=== PATIENT | male | born 1970 | race Caucasian/White ===

== ENCOUNTER 2016-06-28 18:25 | Emergency (ER) | payer OTHER ==
[2016-06-28 18:36] VITALS: BP 166/92; PULSE 100; TEMP 98; BMI 27.2
[2016-06-28] MEDS ORDERED: traMADol HCL 50 MG TABLET PO ONE (19:26)
[2016-06-28] MEDS ORDERED: traMADol HCL 50 MG TABLET ONE (19:27)
--- NOTE | 2016-06-28 19:35 | PDOC ---
History of Present Illness - General Chief Complaint: Pain Stated Complaint: LEG PAIN Time Seen by Provider: 06/28/16 18:54 History Source: Patient - History of Present Illness Occurred: reports: last week Severity: Yes: moderate Lower Extremity Pain Location: right: leg Past History - Past Medical History Allergies/Adverse Reactions: Allergies Allergy/AdvReac Type Severity Reaction Status Date / Time No Known Allergies Allergy Verified 06/28/16 18:36 Home Medications: Ambulatory Orders Hydrocodone/Ibuprofen [Hydrocodone-Ibuprofen 7.5-200] 1 each PO Q6H #15 tablet MDD 4mg 06/28/16 - Psycho/Social/Smoking Cessation Hx Anxiety: No Suicidal Ideation: No Smoking History: Never smoked Have you smoked in the past 12 months: No Information on smoking cessation initiated: No Hx Alcohol Use: No Drug/Substance Use Hx: No Substance Use Type: None Review of Systems - Review of Systems Constitutional: No: Chills, Fever Respiratory: No: Shortness of Breath Cardiac (ROS): No: Chest Pain, Palpitations Musculoskeletal: No: Back Pain, Neck Pain Neurological: Yes: Numbness. No: Tingling, Weakness *Physical Exam - Vital Signs Last Vital Signs Temp Pulse Resp BP Pulse Ox 98 F 100 H 18 166/92 98 06/28/16 18:34 06/28/16 18:34 06/28/16 18:34 06/28/16 18:34 06/28/16 18:34 - Physical Exam General Appearance: Yes: Appropriately Dressed. No: Apparent Distress HEENT: positive: Normal Voice Neck: positive: Supple Respiratory/Chest: negative: Respiratory Distress Extremity: positive: Normal Inspection, Normal Range of Motion, Other (pedal pulses intact). negative: Tender, Pedal Edema, Swelling, Calf Tenderness Integumentary: positive: Dry, Warm Neurologic: positive: Fully Oriented, Alert, Normal Mood/Affect, Motor Strength 5/5 Medical Decision Making - Medical Decision Making 06/28/16 19:35 45 yo M, no sig hx, p/w pain to R foot that radiates to posterior leg and thigh x > 1 week, sharp, intermittent, improves w/ alleve w/ no exacerbating factors. Also reports intermittent numbness to R foot, no LE weakness, b/b incontinence, saddle anesthesia or back pain. Denies h/o similar sxs. No recent trauma. No obvious RFs for DVT/PE. No chest pain/sob or palpitations. See exam LLE pain Possibly sciatica given hx, no RFs for DVT/PE, ? muscular, no s/o infxn, pulses intact -d/c w/ pain control and pmd f/u 06/28/16 19:39 *DC/Admit/Observation/Transfer Diagnosis at time of Disposition: Leg pain Qualifiers: Laterality: right Qualified Code(s): M79.604 - Pain in right leg - Discharge Dispostion Disposition: HOME Condition at time of disposition: Good - Prescriptions Prescriptions: Hydrocodone/Ibuprofen [Hydrocodone-Ibuprofen 7.5-200] 1 each PO Q6H #15 tablet MDD 4mg - Patient Instructions Printed Discharge Instructions: Sciatica Additional Instructions: Take medication as directed and follow up with your PMD of pain persists
== END 2016-06-28 19:58 | disposition home or self-care (01) ==
LOC: JERFT 18:25
DX: M79.604 Pain in right leg (principal)
CPT/HCPCS: 99281-25

== ENCOUNTER 2018-05-12 00:39 | Emergency (ER) | payer BC, OTHER ==
[2018-05-12 00:48] VITALS: BMI 26.4
[2018-05-12 01:04] VITALS: BP 121/69; PULSE 84; TEMP 98.5
--- NOTE | 2018-05-12 01:29 | PDOC ---
History of Present Illness - General Chief Complaint: Chest Pain Stated Complaint: CHEST PAIN Time Seen by Provider: 05/12/18 00:48 History Source: Patient, Spouse ( present at bedside.) Exam Limitations: No Limitations - History of Present Illness Initial Comments: HPI: 47 y/o male presenting to [facility] ER complaining of left sided anterior chest wall pain with radiation to left upper arm. No active symptoms at the time of interview. Reports two episodes over the course of the day. The first episode occurred while at rest during the morning. Lasted approx. 15 to 20 minutes before resolving spontaneously. Associated slight lightheadedness when standing during the episode. The second episode occurred tonight while laying down in bed. Again lasted approx. 15 to 20 minutes before resolving. Pt trialed PO Advil. Denies SOB, pain to right arm, neck, back, or abdomen. Denies trauma to the area or unusually strenuous activity. Never been evaluated by entry level automotive technician. Has never undergone cardiac stress testing or echo. PCP: Steve Family Hx: - No known family history of heart disease. 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 Denies prescription medications. Surgical Hx: - Pt denies past surgical history. Past History - Past Medical History Allergies/Adverse Reactions: Allergies Allergy/AdvReac Type Severity Reaction Status Date / Time No Known Allergies Allergy Verified 06/28/16 18:36 Home Medications: Ambulatory Orders NK [No Known Home Medication] 05/12/18 COPD: No - Suicide/Smoking/Psychosocial Hx Smoking History: Unknown if ever smoked Have you smoked in the past 12 months: No Hx Alcohol Use: No Drug/Substance Use Hx: No Substance Use Type: None Review of Systems - Review of Systems Able to Perform ROS?: Yes Comments:: In addition to that documented in the HPI above, the additional ROS was obtained : Constitutional: Denies fevers or chills Head: Denies vision changes ENMT: Denies sore throat CV: Per HPI Resp: Denies SOB GI: Denies vomiting or diarrhea : Denies painful urination MSK: Denies recent trauma Skin: Denies new rashes Neuro: Denies new numbness or tingling or weakness Endocrine: Denies polyuria Heme: Denies bleeding or bruising *Physical Exam - Vital Signs Last Vital Signs Temp Pulse Resp BP Pulse Ox 98.5 F 84 20 121/69 98 05/12/18 01:02 05/12/18 01:02 05/12/18 01:02 05/12/18 01:02 05/12/18 01:02 - Physical Exam Comments: Constitutional: Well-developed, well-nourished adult male in no acute distress or obvious discomfort. Found semi-fowlers on hospital bed. Alert and oriented x4. Answered all questions appropriately and completely. Speech was non-labored , non-pressured. Head: Normocephalic. No obvious external signs of trauma. Eyes: Sclerae white. Ears: Hearing grossly intact. Nose: No nasal discharge. Neck: Supple, trachea is midline. Cardiovascular / Chest: Regular rate and regular rhythm. No murmur, rubs, clicks, or gallops. Peripheral pulses: radial pulses full. Point tenderness to upper outer edge of left anterior chest wall. Pain reproduced with left arm lift off test. Negative empty beer can test. No pretibial edema. Respiratory: Breathing unlabored. Equal chest rise and fall. Clear to auscultation bilaterally. No stridor, no wheezing, no rhonchi. Gastrointestinal: abdomen is soft, non-tender, non-distended. Neuro: Alert and oriented. Moving all four extremities spontaneously. Skin: Warm, dry, and intact. Psych: Affect: appropriate. Mood: normal. ED Treatment Course - LABORATORY CBC & Chemistry Diagram: 05/12/18 01:35 05/12/18 01:35 Medical Decision Making - Medical Decision Making HEART Score for Major Cardiac Events RESULT SUMMARY: 1 points Low Score (0-3 points) Risk of MACE of 0.9-1.7%. INPUTS: History > 0 = Slightly suspicious EKG > 0 = Normal Age > 1 = 45-64 Risk factors > 0 = No known risk factors Initial troponin > 0 = ?normal limit *Reviewed vital signs, nursing notes, and prior visit documentation (if available). 47 y/o male presenting with resolved left sided chest pain radiating to left arm. Made worse with movement of left arm. No associated SOB. No significant personal or familial cardiac history. Vitals unremarkable for hypotension or tachycardia. Low suspicion for ACS, pneumonia, arrhythmia. Suspect likely MSK pain given reproducible nature of pain. Will obtain EKG, CXR, CBC, CMP, and troponin. Ordered ASA. Pts initial and three hour repeat EKG were both unremarkable for ischemic changes. Initial and three hour troponin not elevated. CXR unremarkable for acute cardiopulmonary process per ED wet read. Radiology report pending. CBC unremarkable for leukocytosis or anemia. CMP unremarkable for significant electrolyte derangement. Pt reassessed and reports no further discomfort. Continue to suspect MSK pain. Discussed imaging and laboratory results with pt. Answered all questions. Provided return precautions. Pt expressed verbal understanding and agreement with plan to discharge home with outpatient follow up. Provided cardiology referral for f/u. *DC/Admit/Observation/Transfer Diagnosis at time of Disposition: Chest pain in adult - Discharge Dispostion Disposition: HOME Condition at time of disposition: Good Decision to Admit order: No - Referrals Referrals: Chano Wilson MD [Primary Care Provider] - Andrew Noriega MD [Staff Physician] - - Patient Instructions Printed Discharge Instructions: DI for Chest Pain Additional Instructions: You were seen today for chest pain. Your EKG, chest xray, and blood work were normal. The pain is not likely to be related to your heart or your lungs. It may be caused by a muscle pain. You can take over the counter Tylenol or Advil as needed for pain. Take as directed on the package insert. Do not exceed the recommended dosage. Follow up with your primary care doctor within the next 3-4 days to make sure you are healing. You will need to call to make an appointment. The number is included in this packet. A copy of todays results are attached to this packet. Take it to the appointment so your doctor can review them. You can also follow up with a entry level automotive technician. I have placed a referral for you to see Dr. Noriega. You will need to call to make an appointment. The number is included in this packet. Go to the nearest emergency department if your condition worsens or you feel like you need additional emergency evaluation. Print Language: SRI LANKAN - Post Discharge Activity
[2018-05-12] MEDS ORDERED: ASPIRIN 81 MG CHEWABLE TABLETS PO ONE (01:30)
[2018-05-12] MEDS ORDERED: ASPIRIN 81 MG CHEWABLE TABLETS ONE (01:34)
[2018-05-12 01:41] LABS: BASO % 1.1 % (0-2.0); EOS % 6.5 % (0-4.5); HEMATOCRIT 43.6 % (35.4-49); HEMOGLOBIN 14.4 GM/dL (11.7-16.9); LYMPH % 29.1 % (8-40); MCHC 32.9 g/dl (32.0-35.9); MEAN CELL VOLUME 85.1 fl (80-96); MONO % 10.5 % (3.8-10.2); NEUT % 52.8 % (42.8-82.8); PLATELET COUNT 148 K/MM3 (134-434); RBC 5.13 M/mm3 (4.00-5.60); RDW 14.1 % (11.9-15.9); WHITE BLOOD COUNT 4.6 K/mm3 (4.0-10.0)
[2018-05-12 02:17] LABS: ALBUMIN 3.7 g/dl (3.4-5.0); ALK PHOS 54 U/L (45-117); ANION GAP 7 MMOL/L (8-16); BILIRUBIN,TOTAL 0.3 mg/dL (0.2-1); BLOOD UREA NITROGEN 27 mg/dL (7-18); CHLORIDE 106 mmol/L (98-107); CO2 26 mmol/L (21-32); CREATININE 1.2 mg/dL (0.55-1.3); GLUCOSE,RANDOM 139 mg/dL (74-106); POTASSIUM 3.9 mmol/L (3.5-5.1); SGOT/AST 17 U/L (15-37); SGPT/ALT 31 U/L (13-61); SODIUM 139 mmol/L (136-145); TOT PROT 6.7 g/dl (6.4-8.2)
--- NOTE | 2018-05-12 02:52 | PDOC ---
Attending Attestation - Resident Resident Name: Petey Pak - ED Attending Attestation I have performed the following: I have examined & evaluated the patient, The case was reviewed & discussed with the resident, I agree w/resident's findings & plan - HPI HPI: 05/12/18 02:50 Pt comes with left sided CP since this AM. Then the pain got worse this afternoon/evening and started to radiate to the left arm. Pt got anxious and came in for eval. - Physicial Exam PE: 05/12/18 02:51 Agree with resident exam - Medical Decision Making 05/12/18 02:51 CXR normal EKG NSR. Pt will be given a baby asa first set of labs normal Pt will have a 2nd card enz at 4:30 AM 05/12/18 04:46 2nd EKG is NSR; no change. Pt's 2nd card enz is pending. Once it is normal, he will be discharged home. 05/12/18 05:12 d/c home.
--- NOTE | 2018-05-14 10:25 | EKG ---
Test Reason : Blood Pressure : / mmHG Vent. Rate : 059 BPM Atrial Rate : 059 BPM P-R Int : 154 ms QRS Dur : 078 ms QT Int : 396 ms P-R-T Axes : 050 019 025 degrees QTc Int : 392 ms SINUS BRADYCARDIA OTHERWISE NORMAL ECG NO PREVIOUS ECGS AVAILABLE Confirmed by CHARLES RODRIGUEZ MD ([id number]) on 05/14/2018 10:25:42 AM Referred By: Confirmed By:CHARLES RODRIGUEZ MD
--- NOTE | 2018-05-14 10:25 | EKG ---
Test Reason : Blood Pressure : / mmHG Vent. Rate : 058 BPM Atrial Rate : 058 BPM P-R Int : 158 ms QRS Dur : 078 ms QT Int : 394 ms P-R-T Axes : 042 009 029 degrees QTc Int : 386 ms SINUS BRADYCARDIA OTHERWISE NORMAL ECG WHEN COMPARED WITH ECG OF 12-MAY-2018 00:45, NO SIGNIFICANT CHANGE WAS FOUND Confirmed by CHARLES RODRIGUEZ MD ([id number]) on 05/14/2018 10:24:45 AM Referred By: Confirmed By:CHARLES RODIRGUEZ MD
== END 2018-05-12 05:14 | disposition home or self-care (01) ==
LOC: JER 00:39
DX: R07.9 Chest pain, unspecified (principal)
CPT/HCPCS: 36415; 71046-TC-FY; 80053; 84484; 85025; 93005; 93010; 99283-25

== ENCOUNTER 2019-03-22 08:58 | Inpatient (IN) | payer BC ==
[2019-03-22 09:07] VITALS: BMI 26.7
[2019-03-22] MEDS ORDERED: KETOROLAC TROMETHAMINE 60 MG/2 ML VIAL IM ONE (09:23)
[2019-03-22] MEDS ORDERED: KETOROLAC TROMETHAMINE 60 MG/2 ML VIAL ONE (09:23)
[2019-03-22] MEDS ORDERED: traMADol HCL 50 MG TABLET PO ONE (09:23)
[2019-03-22] MEDS ORDERED: traMADol HCL 50 MG TABLET ONE (09:24)
--- NOTE | 2019-03-22 09:27 | PDOC ---
History of Present Illness - General Chief Complaint: Back Pain Stated Complaint: BACK PAIN Time Seen by Provider: 03/22/19 09:22 History Source: Patient - History of Present Illness Occurred: reports: this morning Pain Location: reports: back Past History - Past Medical History Allergies/Adverse Reactions: Allergies Allergy/AdvReac Type Severity Reaction Status Date / Time No Known Allergies Allergy Verified 03/22/19 09:03 Home Medications: Ambulatory Orders Cyclobenzaprine HCl [Flexeril 10 mg] 10 mg PO HS #9 tablet 03/22/19 Ibuprofen [Motrin -] 800 mg PO Q6H #30 tablet 03/22/19 COPD: No - Immunization History Immunization Up to Date: Yes - Psycho Social/Smoking Cessation Hx Smoking History: Never smoked Have you smoked in the past 12 months: No Hx Alcohol Use: No Drug/Substance Use Hx: No Substance Use Type: None Review of Systems - Review of Systems Constitutional: No: Chills, Fever ABD/GI: No: Nausea, Vomiting, Abdominal cramping : No: Dysuria, Frequency, Hematuria Musculoskeletal: Yes: Back Pain Neurological: No: Numbness, Tingling, Weakness *Physical Exam - Vital Signs Last Vital Signs Temp Pulse Resp BP Pulse Ox 97.9 F 74 16 157/90 99 03/22/19 09:03 03/22/19 09:03 03/22/19 09:03 03/22/19 09:03 03/22/19 09:03 - Physical Exam General Appearance: Yes: Appropriately Dressed, Moderate Distress HEENT: positive: Normal Voice Neck: positive: Supple Respiratory/Chest: negative: Respiratory Distress Gastrointestinal/Abdominal: positive: Soft. negative: Tender Musculoskeletal: positive: Vertebral Tenderness (to R lower back). negative: CVA Tenderness, CVA Tenderness (L) Integumentary: positive: Dry, Warm Neurologic: positive: Fully Oriented, Alert, Normal Mood/Affect. negative: Motor Strength 5/5 ED Treatment Course - LABORATORY CBC & Chemistry Diagram: 03/22/19 11:40 03/22/19 11:40 Medical Decision Making - Medical Decision Making 03/22/19 09:24 48 yo M, no sig hx, here w/ R lower back pain radiating to his R leg that started after sneezing this a.m. Took a dose of Kendra aspirin with no relief. No sensory changes or lower extremity weakness. Had similar pain a year ago that resolved with pain meds. No sxs, n/v/f/c see exam M/l MSK back pain No red flags at this time -pain control in ED and reassess 03/22/19 11:13 Patient's pain persist despite multiple attempts at pain control in ED. Feels better laying down but when he attempts to sit up, pain is severe and unable to bear weight. Neuro remains intact. Will move over to the main ED for further evaluation and admission at this time Discharge - Discharge Information Problems reviewed: Yes Clinical Impression/Diagnosis: Intractable low back pain - Additional Discharge Information Prescriptions: Cyclobenzaprine HCl [Flexeril 10 mg] 10 mg PO HS #9 tablet Ibuprofen [Motrin -] 800 mg PO Q6H #30 tablet - Follow up/Referral Referrals: Chano Wilson MD [Primary Care Provider] - - Patient Discharge Instructions Patient Printed Discharge Instructions: Low Back Pain Additional Instructions: Medications as prescribed If pain persists, return to the ER or follow-up with your primary care physician - Post Discharge Activity Work/Back to School Note: Back to Work
[2019-03-22] MEDS ORDERED: morphine CARPU-JECT 4 MG/1 ML DISP.SYRIN IVPUSH ONE (10:23)
[2019-03-22] MEDS ORDERED: morphine SULFATE 4 MG/ML VIAL ONE (10:26)
[2019-03-22] MEDS ORDERED: CYCLOBENZAPRINE HCL 10 MG TABLET (FP) PO ONE (11:42)
[2019-03-22] MEDS ORDERED: LIDOCAINE 5% TOPICAL PATCH TP ONE (11:43)
[2019-03-22 11:50] LABS: BASO % 0.6 % (0-2.0); EOS % 1.7 % (0-4.5); HEMATOCRIT 45.3 % (35.4-49); HEMOGLOBIN 15.1 GM/dL (11.7-16.9); MCH 28.3 pg (25.7-33.7); MCHC 33.4 g/dl (32.0-35.9); MEAN CELL VOLUME 84.6 fl (80-96); MEAN PLT VOLUME 9.5 fl (7.5-11.1); MONO % 4.9 % (3.8-10.2); NEUT % 77.8 % (42.8-82.8); PLATELET COUNT 181 K/MM3 (134-434); RBC 5.35 M/mm3 (4.00-5.60); RDW 13.4 % (11.9-15.9); WHITE BLOOD COUNT 8.3 K/mm3 (4.0-10.0)
[2019-03-22] MEDS ORDERED: CYCLOBENZAPRINE HCL 10 MG TABLET (FP) ONE (11:51)
[2019-03-22] MEDS ORDERED: LIDOCAINE 5% TOPICAL PATCH ONE (11:51)
--- NOTE | 2019-03-22 11:56 | PDOC ---
Documentation entered by Taty Rausch SCRIBE, acting as scribe for Gabriel Russell MD. Gabriel Russell MD: This documentation has been prepared by the Shalom piña Nirvannie, SCRIBE, under my direction and personally reviewed by me in its entirety. I confirm that the documentation accurately reflects all work, treatment, procedures, and medical decision making performed by me. Attending Attestation - Resident Resident Name: Flavio Jackson - ED Attending Attestation I have performed the following: I have examined & evaluated the patient, The case was reviewed & discussed with the resident, I agree w/resident's findings & plan, Exceptions are as noted - HPI HPI: 03/22/19 11:55 48y M hx of disk herniations (L5/S1 dx via MRI) - presents with acute onset of back pain after sneezing today. The patient states that he felt a little bit of mild pain yesterday however this morning he sneezed which caused a sudden onset of right-sided lower back pain rating down his right leg. The patient denies any fever, chills, urinary or bowel incontinence, Focal weakness, Numbness, Saddle anesthesia. 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 Social:, Social EtOH, denies IVDU - Physicial Exam PE: 03/22/19 11:53 GENERAL: The patient is awake, alert, and fully oriented, Nontoxic - in no acute distress. BACK: No focal midline tenderness in the cervical thoracic or lumbar spine, mild tenderness to palpation on the lateral aspect of right lower back, superior buttock. NEUROLOGICAL: No facial assymetry, Normal speech, Flexion/extension of the hip/ knee normal, gross sensation intact distally SKIN: No rashes on the back appreciated - Medical Decision Making 03/22/19 11:39 Assessment and plan, suspect the patient's symptoms Related to re-exacerbation of his herniated disc, no red flags. Patient was originally seen in fast track, gotten some medications without improvement, will give the patient a muscle relaxants. Will defer imaging at this time Will reassess 03/22/19 13:43 The patient has persistent pain, he Was given Lidoderm patches, Flexeril, Toradol, tramadol. We will give the patient Dilaudid now. May need to admit the patient for pain control.
--- NOTE | 2019-03-22 12:12 | PDOC ---
*Physical Exam - Vital Signs Last Vital Signs Temp Pulse Resp BP Pulse Ox 97.9 F 74 16 157/90 99 03/22/19 09:03 03/22/19 09:03 03/22/19 09:03 03/22/19 09:03 03/22/19 09:03 ED Treatment Course - LABORATORY CBC & Chemistry Diagram: 03/22/19 11:40 03/22/19 11:40 - Medications Given in the ED: ED Medications Discontinued Medications Generic Name Dose Route Start Last Admin Trade Name Buster PRN Reason Stop Dose Admin Ketorolac Tromethamine 60 mg 03/22/19 09:23 03/22/19 09:24 Toradol Injection - IM 03/22/19 09:24 60 mg ONCE ONE Administration Morphine Sulfate 4 mg 03/22/19 10:23 03/22/19 10:29 Morphine Injection - IVPUSH 03/22/19 10:24 4 mg ONCE ONE Administration Tramadol HCl 50 mg 03/22/19 09:23 03/22/19 09:24 Ultram - PO 03/22/19 09:24 50 mg ONCE ONE Administration Medical Decision Making - Medical Decision Making 03/22/19 11:45 Upgrade from fast track 48 yo male pmh L5-S1 herniated disc presents to the ED with right sided lower back pain with radiation into his right leg. Pt denies saddle anesthesia, incontinence/retention of stool or urine, weakness into his lower ext. Pain not controlled after toradol and morphine, will try lidoderm patch and flexeril will reassess and dispo 03/22/19 12:40 Denies improvement in pain, will give 10 mg decadron and reassess 03/22/19 14:58 No improvement in pain, pt given 1 mg Dilaudid and pending CT read. Pt to be admitted for intractable back pain 03/22/19 15:56 PNo improvement after Dilaudid, pain man consult placed and pt admitted. Discussed with ANNITA Marie Discharge - Discharge Information Problems reviewed: Yes Clinical Impression/Diagnosis: Intractable low back pain - Admission Yes - Additional Discharge Information Prescriptions: Cyclobenzaprine HCl [Flexeril 10 mg] 10 mg PO HS #9 tablet Ibuprofen [Motrin -] 800 mg PO Q6H #30 tablet - Follow up/Referral Referrals: Chano Wilson MD [Primary Care Provider] - - Patient Discharge Instructions Patient Printed Discharge Instructions: Low Back Pain Additional Instructions: Medications as prescribed If pain persists, return to the ER or follow-up with your primary care physician - Post Discharge Activity Work/Back to School Note: Back to Work
[2019-03-22 12:21] LABS: BILIRUBIN,TOTAL 0.8 mg/dL (0.2-1); BLOOD UREA NITROGEN 32.3 mg/dL (7-18); CALCIUM 9.4 mg/dL (8.5-10.1); POTASSIUM 4.4 mmol/L (3.5-5.1); TOT PROT 7.4 g/dl (6.4-8.2)
[2019-03-22] MEDS ORDERED: DEXAMETHASONE SOD PHOSPHATE 10 MG/1 ML VIAL IVPUSH ONE (12:38)
[2019-03-22] MEDS ORDERED: DEXAMETHASONE SOD PHOSPHATE 10 MG/1 ML VIAL ONE (12:41)
[2019-03-22] MEDS ORDERED: HYDROmorphone HCL CARPU-JECT 2 MG/1 ML DISP.SYRIN IVPUSH ONE (14:26)
[2019-03-22] MEDS ORDERED: HYDROmorphone HCl 2 MG/ML VIAL ONE (14:31)
[2019-03-22] MEDS ORDERED: ACETAMINOPHEN 325 MG TABLET (FP) PO PRN (18:32)
[2019-03-22] MEDS ORDERED: LIDOCAINE PATCH REMOVAL MC ONE (22:00)
[2019-03-23] MEDS ORDERED: HEPARIN NA (PORCINE) 5,000 UNITS/ML 1ML VIAL ONE (00:48)
[2019-03-23] MEDS: HEPARIN NA (PORCINE) 5,000 UNITS/ML 1ML VIAL SQ SCH ×3 (01:20→21:06)
[2019-03-23] MEDS ORDERED: GABAPENTIN 100 MG CAPSULE ONE (06:06)
[2019-03-23] MEDS: GABAPENTIN 300 MG CAPSULE PO SCH ×3 (06:11→21:06)
[2019-03-23 06:15] LABS: BASO % 0.3 % (0-2.0); EOS % 0.1 % (0-4.5); HEMATOCRIT 44.3 % (35.4-49); HEMOGLOBIN 14.9 GM/dL (11.7-16.9); LYMPH % 12.7 % (8-40); MCH 28.3 pg (25.7-33.7); MCHC 33.6 g/dl (32.0-35.9); MEAN CELL VOLUME 84.2 fl (80-96); MEAN PLT VOLUME 9.7 fl (7.5-11.1); MONO % 5.9 % (3.8-10.2); PLATELET COUNT 181 K/MM3 (134-434); RBC 5.26 M/mm3 (4.00-5.60); RDW 13.7 % (11.9-15.9); WHITE BLOOD COUNT 6.9 K/mm3 (4.0-10.0)
[2019-03-23 06:52] LABS: ALBUMIN 3.8 g/dl (3.4-5.0); BILIRUBIN,TOTAL 0.3 mg/dL (0.2-1); BLOOD UREA NITROGEN 32.2 mg/dL (7-18); CALCIUM 9.3 mg/dL (8.5-10.1); POTASSIUM 4.5 mmol/L (3.5-5.1)
[2019-03-23] MEDS ORDERED: ACETAMINOPHEN 325 MG TABLET (FP) ONE (10:35)
[2019-03-23] MEDS ORDERED: oxyCODONE HCL 5 MG TABLET ONE (10:36)
[2019-03-23] MEDS: oxyCODONE HCL 5 MG TABLET PO PRN ×2 (10:46→16:50)
[2019-03-23] MEDS: LIDOCAINE 5% TOPICAL PATCH TP SCH (10:46)
--- NOTE | 2019-03-23 13:19 | HP ---
Admitting History and Physical - Primary Care Physician PCP: Luisa Gutierrez - Admission Chief Complaint: Intractable low back pain with sciatica History of Present Illness: 48y M hx of disk herniations (L5/S1 dx via MRI) - presents with acute onset of back pain after sneezing today. The patient states that he felt a little bit of mild pain yesterday however this morning he sneezed which caused a sudden onset of right-sided lower back pain rating down his right leg. The patient denies any fever, chills, urinary or bowel incontinence, Focal weakness, Numbness, Saddle anesthesia. 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 as of now, pain is 4/10, however worsens upon ambulation, radiating down his right leg. History Source: Patient Limitations to Obtaining History: No Limitations - Smoking History Smoking history: Never smoked Have you smoked in the past 12 months: No - Alcohol/Substance Use Hx Alcohol Use: Yes (occassional) Home Medications - Allergies Allergies/Adverse Reactions: Allergies Allergy/AdvReac Type Severity Reaction Status Date / Time No Known Allergies Allergy Verified 03/22/19 09:03 - Home Medications Home Medications: Ambulatory Orders NK [No Known Home Medication] 03/22/19 Review of Systems - Review of Systems Constitutional: reports: No Symptoms Eyes: reports: No Symptoms HENT: reports: No Symptoms Neck: reports: No Symptoms Cardiovascular: reports: No Symptoms Respiratory: reports: No Symptoms Gastrointestinal: reports: No Symptoms Genitourinary: reports: No Symptoms Breasts: reports: No Symptoms Reported Musculoskeletal: reports: Back Pain Integumentary: reports: No Symptoms Neurological: reports: No Symptoms Endocrine: reports: No Symptoms Hematology/Lymphatic: reports: No Symptoms Psychiatric: reports: No Symptoms Physical Examination Vital Signs: Vital Signs Temperature 97.4 F L 03/23/19 11:51 Pulse Rate 62 03/23/19 11:19 Respiratory Rate 20 03/23/19 11:51 Blood Pressure 138/82 03/23/19 11:51 O2 Sat by Pulse Oximetry (%) 100 03/23/19 11:51 Constitutional: Yes: Well Nourished, No Distress, Calm Cardiovascular: Yes: Regular Rate and Rhythm Respiratory: Yes: Regular Gastrointestinal: Yes: Normal Bowel Sounds, Soft Renal/: Yes: WNL Musculoskeletal: Yes: Back Pain Extremities: Yes: WNL Edema: No Peripheral Pulses WNL: Yes Neurological: Yes: Alert, Oriented Psychiatric: Yes: Alert, Oriented Labs: CBC, BMP 03/23/19 05:40 03/23/19 05:40 Problem List - Problems (1) Intractable low back pain Assessment/Plan: -Lumbar CT:Transitional vertebral body at the lumbosacral junction considered at L5 for the purposes of this examination. L4-L5 mild degenerative disc disease , mainly posteriorly with mild to moderate right paracentral disc bulge/ herniation, posterior spur formation and impingement of right L4 nerve root is again seen. On prior MRI examination dated 07/09/2016 it was considered to represent S1 and the disc bulge was reported as at L5-S1 level. If surgical intervention is considered, x-rays of the thoracic and lumbar spine is needed for better counting of the thoracic and lumbar vertebral bodies. There is also extension mild left lateral disc bulge at L4-L5 level reaching and possibly slightly impinging left L4 nerve root. -Neurosurgery consult -Pain management -PO prednisone -PPI Problems reviewed: Yes Code(s): M54.5 - LOW BACK PAIN Assessment/Plan see problem list
[2019-03-23] MEDS: PANTOPRAZOLE 40 MG TABLET PO SCH (13:34)
--- NOTE | 2019-03-23 15:56 | CON.GI ---
Consult Consult Specialty:: GI Reason for Consultation:: rectal bleeding - History of Present Illness History of Present Illness: 48y M hx of disk herniations (L5/S1 dx via MRI) - presents with acute onset of back pain after sneezing today. The patient states that he felt a little bit of mild pain yesterday however this morning he sneezed which caused a sudden onset of right-sided lower back pain rating down his right leg. Patient has intermittent rectal bleeding for the past 3 months, no active bleeding at this time.He denies abdominal pain, weight loss and melena - Alcohol/Substance Use Hx Alcohol Use: Yes (occassional) - Smoking History Smoking history: Never smoked Have you smoked in the past 12 months: No Home Medications - Allergies Allergies/Adverse Reactions: Allergies Allergy/AdvReac Type Severity Reaction Status Date / Time No Known Allergies Allergy Verified 03/22/19 09:03 - Home Medications Home Medications: Ambulatory Orders NK [No Known Home Medication] 03/22/19 Physical Exam-GI Vital Signs: Vital Signs Temperature 97.4 F L 03/23/19 11:51 Pulse Rate 62 03/23/19 11:19 Respiratory Rate 03/23/19 11:51 Blood Pressure 138/82 03/23/19 11:51 O2 Sat by Pulse Oximetry (%) 100 03/23/19 11:51 Constitutional: Yes: Well Nourished Eyes: Yes: Conjunctiva Clear HENT: Yes: Atraumatic Neck: Yes: Supple Cardiovascular: Yes: Regular Rate and Rhythm Respiratory: Yes: CTA Bilaterally ...Palpate: Yes: Soft. No: Firm/Rigid, Guarding, Hepatomegaly, Mass, Pulsatile Mass, Splenomegaly, Tenderness Labs: CBC, BMP 03/23/19 05:40 03/23/19 05:40 Problem List - Problems (1) Rectal bleeding Assessment/Plan: R> could perform rectal examination as the patient is experiencing low back pain and is hesitant to go in left lateral position he was made aware to follow up and undergo an outpatient colonoscopy once low back pain is resolved Code(s): K62.5 - HEMORRHAGE OF ANUS AND RECTUM
--- NOTE | 2019-03-23 20:35 | CONSULT ---
Consult Consult Specialty:: Endocrine Referred by:: yesenia barton Reason for Consultation:: back pain muscle weakness - History of Present Illness Chief Complaint: weakness and fatigue History of Present Illness: 48y M hx of disk herniations (L5/S1 dx via MRI) - presents with acute onset of back pain after sneezing today. The patient states that he felt a little bit of mild pain yesterday however this morning he sneezed which caused a sudden onset of right-sided lower back pain rating down his right leg. The patient denies any fever, chills, urinary or bowel incontinence, Focal weakness, Numbness, Saddle anesthesia. Patient denies any recent trauma or injury has had weakness rt leg and difficulty walking. - Alcohol/Substance Use Hx Alcohol Use: Yes (occassional) - Smoking History Smoking history: Never smoked Have you smoked in the past 12 months: No Home Medications - Allergies Allergies/Adverse Reactions: Allergies Allergy/AdvReac Type Severity Reaction Status Date / Time No Known Allergies Allergy Verified 03/22/19 09:03 - Home Medications Home Medications: Ambulatory Orders NK [No Known Home Medication] 03/22/19 Review of Systems - Review of Systems Constitutional: reports: Weakness Eyes: reports: No Symptoms HENT: reports: No Symptoms Neck: reports: No Symptoms Cardiovascular: reports: No Symptoms Respiratory: reports: No Symptoms Gastrointestinal: reports: Bloating Genitourinary: reports: No Symptoms Breasts: reports: No Symptoms Reported Musculoskeletal: reports: Muscle Cramps, Muscle Weakness Integumentary: reports: No Symptoms Neurological: reports: No Symptoms Endocrine: reports: Unexplained Weight Loss Physical Exam Vital Signs: Vital Signs Temperature 97.9 F 03/23/19 18:00 Pulse Rate 70 03/23/19 18:00 Respiratory Rate 20 03/23/19 18:00 Blood Pressure 129/78 03/23/19 18:00 O2 Sat by Pulse Oximetry (%) 100 03/23/19 11:51 Constitutional: Yes: Anxious Eyes: Yes: EOM Intact HENT: Yes: Normocephalic Neck: Yes: Trachea Midline Cardiovascular: Yes: Regular Rate and Rhythm Respiratory: Yes: CTA Bilaterally Gastrointestinal: Yes: Normal Bowel Sounds ...Rectal Exam: Yes: Deferred Renal/: Yes: WNL Breast(s): Yes: WNL Musculoskeletal: Yes: Muscle Weakness Extremities: Yes: Delayed Capillary Refill Edema: No Neurological: Yes: Alert, Oriented, Weakness Labs: CBC, BMP 03/23/19 05:40 03/23/19 05:40 Problem List - Problems (1) Intractable low back pain Code(s): M54.5 - LOW BACK PAIN (2) Rectal bleeding Code(s): K62.5 - HEMORRHAGE OF ANUS AND RECTUM (3) Chest pain in adult Code(s): R07.9 - CHEST PAIN, UNSPECIFIED (4) Leg pain Code(s): M79.606 - PAIN IN LEG, UNSPECIFIED Qualifiers: Laterality: right Qualified Code(s): M79.604 - Pain in right leg (5) Sprained ankle Code(s): S93.409A - SPRAIN OF UNSP LIGAMENT OF UNSPECIFIED ANKLE, INIT ENCNTR Qualifiers: Encounter type: initial encounter Involved ligament of ankle: unspecified ligament Laterality: right Qualified Code(s): S93.401A - Sprain of unspecified ligament of right ankle, initial encounter Assessment/Plan Current Active Problems Intractable low back pain (Acute) Rectal bleeding (Acute) Laboratory Results - last 24 hr 03/23/19 03/23/19 05:40 05:40 WBC 6.9 RBC 5.26 Hgb 14.9 Hct 44.3 MCV 84.2 MCH 28.3 MCHC 33.6 RDW 13.7 Plt Count 181 MPV 9.7 Absolute Neuts (auto) 5.6 Neutrophils % 81.0 Lymphocytes % 12.7 Monocytes % 5.9 Eosinophils % 0.1 D Basophils % 0.3 Nucleated RBC % 0 Sodium 137 Potassium 4.5 Chloride 103 Carbon Dioxide 27 Anion Gap 7 L BUN 32.2 H Creatinine 1.0 Est GFR (CKD-EPI)AfAm 101.98 Est GFR (CKD-EPI)NonAf 87.99 Random Glucose 158 H Calcium 9.3 Total Bilirubin 0.3 AST 13 L ALT 29 Alkaline Phosphatase 60 Total Protein 7.0 Albumin 3.8 TSH 0.81 Thyroxine (T4) 9.6 Abnormal Lab Results 03/23/19 05:40 Anion Gap 7 L BUN 32.2 H Random Glucose 158 H AST 13 L plan: euthyroid clinically and biochemically gi consult rectal bleeding consult neurosurgery
[2019-03-23] MEDS: LIDOCAINE PATCH REMOVAL MC SCH (21:06)
[2019-03-24] MEDS: GABAPENTIN 300 MG CAPSULE PO SCH ×3 (06:12→22:18)
[2019-03-24] MEDS: predniSONE 20 MG TABLET (UD) PO SCH (09:58)
[2019-03-24] MEDS: LIDOCAINE 5% TOPICAL PATCH TP SCH (09:58)
[2019-03-24] MEDS: HEPARIN NA (PORCINE) 5,000 UNITS/ML 1ML VIAL SQ SCH ×2 (09:58→22:17)
[2019-03-24] MEDS: PANTOPRAZOLE 40 MG TABLET PO SCH (09:59)
--- NOTE | 2019-03-24 11:18 | PN ---
Progress Note, Physician Chief Complaint: Intractable low back pain with right sided sciatica History of Present Illness: NAD in bed being seen by Neurosurgery pain is much improved ambulated to bathroom by himself On PO prednisone + oxycodone (last dosage yesterday), also started on gabapentin - Current Medication List Current Medications: Active Medications Acetaminophen (Tylenol -) 325 mg PO Q6H PRN PRN Reason: PAIN LEVEL 6-10 Last Admin: 03/23/19 10:47 Dose: 325 mg Gabapentin (Neurontin -) 300 mg PO TID [facility] Last Admin: 03/24/19 06:12 Dose: 300 mg Heparin Sodium (Porcine) (Heparin -) 5,000 unit SQ BID [facility] Last Admin: 03/24/19 09:58 Dose: Not Given Lidocaine (Lidoderm Patch -) 1 patch TP DAILY [facility] Last Admin: 03/24/19 09:58 Dose: 1 patch Miscellaneous (Lidoderm Patch Removal) 1 each MC DAILY@2200 [facility] Last Admin: 03/23/19 21:06 Dose: 1 each Oxycodone HCl (Roxicodone -) 5 mg PO Q6H PRN PRN Reason: PAIN LEVEL 6-10 Last Admin: 03/23/19 16:50 Dose: 5 mg Pantoprazole Sodium (Protonix -) 40 mg PO DAILY [facility] Last Admin: 03/24/19 09:59 Dose: 40 mg Prednisone (Deltasone -) 40 mg PO DAILY [facility] Last Admin: 03/24/19 09:58 Dose: 40 mg - Objective Vital Signs: Vital Signs Temperature 98.2 F 03/24/19 06:00 Pulse Rate 71 03/24/19 06:00 Respiratory Rate 20 03/24/19 06:00 Blood Pressure 126/77 03/24/19 06:00 O2 Sat by Pulse Oximetry (%) 100 03/23/19 21:00 Constitutional: Yes: Well Nourished, No Distress, Calm Cardiovascular: Yes: Regular Rate and Rhythm Respiratory: Yes: Regular Gastrointestinal: Yes: Normal Bowel Sounds, Soft Genitourinary: Yes: WNL Musculoskeletal: Yes: Back Pain Extremities: Yes: WNL Edema: No Peripheral Pulses WNL: Yes Neurological: Yes: Alert, Oriented Psychiatric: Yes: Alert, Oriented Labs: CBC, BMP 03/23/19 05:40 03/23/19 05:40 Problem List - Problems (1) Intractable low back pain Assessment/Plan: -Lumbar CT:Transitional vertebral body at the lumbosacral junction considered at L5 for the purposes of this examination. L4-L5 mild degenerative disc disease , mainly posteriorly with mild to moderate right paracentral disc bulge/ herniation, posterior spur formation and impingement of right L4 nerve root is again seen. On prior MRI examination dated 07/09/2016 it was considered to represent S1 and the disc bulge was reported as at L5-S1 level. If surgical intervention is considered, x-rays of the thoracic and lumbar spine is needed for better counting of the thoracic and lumbar vertebral bodies. There is also extension mild left lateral disc bulge at L4-L5 level reaching and possibly slightly impinging left L4 nerve root. -Neurosurgery consult -Pain management -PO prednisone 40 mg po daily x 3 days; 30 mg po daily x 3 days; 20 mg po daily x 3 days; 10 mg po daily x 3 days; 5 mg po daily x 3 days, then stop -Gabapentin 300 mg po TID, can be titrated up if need -Lidoderm patch (may not be covered by insurance outpatient)-alternative salon pas with 4% lidocaine OTC -Oxycodone 5 mg po Q6H PRN in conjunction with Acetaminophen 325 mg -PPI Problems reviewed: Yes Code(s): M54.5 - LOW BACK PAIN Assessment/Plan see problem list Physical therapy D/C home in AM on above meds
--- NOTE | 2019-03-24 17:36 | CONSULT ---
Consult - text type - Consultation Consultation Note: NEUROSURGERY CONSULTATION Paulo Godinez is a 48 year old male who has a recent history of acute low back pain with radiation to his Right lower extremity after a sneeze two days ago. The patient had a similar episode of sudden back pain with Right leg radiation in 2017 which responded well to conservative management consisting primarily of oral steroids although he has had an injection in the past. The patient denies any antecedent accident or injury which may have been causative and was well in the interim between these two episodes. After his recent exacerbation, he had such severe pain that he could notbear weight on his Right leg and presented to the [facility] ED where he was admitted when he did not respond to initial and aggressive medical management. The patient has received oral steroids, Tylenol, Gabapentin, and Oxycodone. This regimen has afforded him some improvement overnight and he is able to stand today and to walk slowly to the bathroom. On Physical Examination, he has 4/5 strength in his Right foot dorsiflexion, but is otherwise 5/5 in all muscle groups. He has somewhat diminished sensation over the Right big toe (L5 distribution). CT scan demonstrates a herniated disc at L45 which has some associated calcification and facet arthropathy. This disc is fairly large and eccentric to the Right. There is a partially sacralized L5 body and I will use the counting nomenclature as used in the current CT report. MRI Lumbar from 2017 demonstrates the same disc, although somewhat smaller at that time. N.B. - This exam is reported as having the disc at the L5S1 level. Regardless of the counting nomenclature used, it appears to be the same disc involved. The patient denies aggravation of back pain with vibration and jostling such as riding in a car over a bumpy road, pot holes or rail road tracks. The patient has some aggravation of symptoms associated with Valsalva's maneuver. The patient does not walk better with a stooped posture such as pushing a shopping cart. The patient manifested severe limitations of activities of daily living and a poor quality of life, although this is of a very short duration and currently improving. I described the potential role of injections, bracing, and Physical Therapy as well as medical management in detail. The patient is not eager for Epidural Steroid injections at this time. I explained that he has a good chance of improving over the coming 7-8 weeks and that JAYLENE would be reserved for intractable pain despite maximum medical management. I explained that Physical Therapy would be beneficial to improve his foot strength and then for core strengthening once he has recovered from this current exacerbation. Only if he were to have pain which progressed despite all efforts or persisted beyond 8 weeks would surgical intervention be considered. I also explained a variety of warning signs such as bowel and bladder difficulties or increased motor weakness as well as intractable pain which also may make surgical intervention appropriate. I will see the patient in the office and have given him contact information. All questions were answered. The patient agrees with this plan of care and will hopefully be ready for discharge in the morning.
[2019-03-24] MEDS: LIDOCAINE PATCH REMOVAL MC SCH (22:18)
[2019-03-25] MEDS: GABAPENTIN 300 MG CAPSULE PO SCH ×2 (06:30→13:36)
[2019-03-25 06:36] VITALS: PULSE 73; TEMP 98.1
--- NOTE | 2019-03-25 09:14 | DS ---
Physical Examination Vital Signs: Vital Signs Temperature 98.1 F 03/25/19 06:00 Pulse Rate 73 03/25/19 06:00 Respiratory Rate 18 03/25/19 06:00 Blood Pressure 129/77 03/25/19 06:00 O2 Sat by Pulse Oximetry (%) 99 03/24/19 21:00 Cardiovascular: Yes: Regular Rate and Rhythm Respiratory: Yes: Regular, CTA Bilaterally Gastrointestinal: Yes: Normal Bowel Sounds, Soft Musculoskeletal: Yes: Back Pain, Other (limited rom able to stand and walk in room) Neurological: Yes: Alert, Oriented Labs: CBC, BMP 03/23/19 05:40 03/23/19 05:40 Discharge Summary Problems reviewed: Yes Reason For Visit: INTRACTABLE LOW BACK PAIN Current Active Problems Intractable low back pain (Acute) Rectal bleeding (Acute) Hospital Course: - Problems (1) Intractable low back pain Assessment/Plan: -Lumbar CT:Transitional vertebral body at the lumbosacral junction considered at L5 for the purposes of this examination. L4-L5 mild degenerative disc disease , mainly posteriorly with mild to moderate right paracentral disc bulge/ herniation, posterior spur formation and impingement of right L4 nerve root is again seen. On prior MRI examination dated 07/09/2016 it was considered to represent S1 and the disc bulge was reported as at L5-S1 level. If surgical intervention is considered, x-rays of the thoracic and lumbar spine is needed for better counting of the thoracic and lumbar vertebral bodies. There is also extension mild left lateral disc bulge at L4-L5 level reaching and possibly slightly impinging left L4 nerve root. -Neurosurgery consult -Pain management -PO prednisone 40 mg po daily x 3 days; 30 mg po daily x 3 days; 20 mg po daily x 3 days; 10 mg po daily x 3 days; 5 mg po daily x 3 days, then stop -Gabapentin 300 mg po TID, can be titrated up if need -Lidoderm patch (may not be covered by insurance outpatient)-alternative salon pas with 4% lidocaine OTC -Oxycodone 5 mg po Q6H PRN in conjunction with Acetaminophen 325 mg -PPI Problems reviewed: Yes Code(s): M54.5 - LOW BACK PAIN - Instructions Diet, Activity, Other Instructions: prednisone 40 mg po daily x 3 days; 30 mg po daily x 3 days; 20 mg po daily x 3 days; 10 mg po daily x 3 days; 5 mg po daily x 3 days Referrals: Chano Wilson MD [Primary Care Provider] - - Home Medications Comprehensive Discharge Medication List: Ambulatory Orders Acetaminophen [Tylenol .Regular Strength -] 325 mg PO Q6H PRN tablet 03/25/19 Gabapentin [Neurontin -] 300 mg PO TID #90 capsule 03/25/19 Lidocaine 5% Patch [Lidoderm -] 1 patch TP DAILY #30 patch 03/25/19 Pantoprazole Sodium [Protonix -] 40 mg PO DAILY #30 tablet.ec 03/25/19 oxyCODONE HCL [Roxicodone -] 5 mg PO Q6H PRN #15 tablet MDD 4 03/25/19
[2019-03-25] MEDS: predniSONE 20 MG TABLET (UD) PO SCH (09:41)
[2019-03-25] MEDS: LIDOCAINE 5% TOPICAL PATCH TP SCH (09:41)
[2019-03-25] MEDS: PANTOPRAZOLE 40 MG TABLET PO SCH (09:41)
[2019-03-25] MEDS: HEPARIN NA (PORCINE) 5,000 UNITS/ML 1ML VIAL SQ SCH ×2 (09:41→09:53)
[2019-03-25 09:57] VITALS: BP 144/77
--- NOTE | 2019-03-25 15:58 | PN ---
Progress Note (short form) - Note Progress Note: Patient continues to improve and is ambulating with a cane. Discussed follow up plans and potential role of TLSO brace. Patient will contact my office to schedule these. All questions answered. Patient clear for discharge from Neurosurgery standpoint.
== END 2019-03-25 13:51 | disposition home or self-care (01) | DRG 552 ==
LOC: JERFT 08:58 → JER 08:58 → SUPCPDRO 08:58 → JERBED 14:59 → J7W 03-23 11:47
PROVIDERS: ADMIT Family Medicine; ATTEND Family Medicine
DX: M51.26 Other intervertebral disc displacement, lumbar region (principal); K62.5 Hemorrhage of anus and rectum
CPT/HCPCS: 36415; 72131-TC; 80053; 84436; 84443; 85025; 97116-GP; 97161-GP; 99285-25; J1100; J1644

== ENCOUNTER 2021-10-09 22:18 | Emergency (ER) | payer BC ==
[2021-10-09 22:24] VITALS: BP 138/87; PULSE 80; RESP 16; TEMP 97.7; BMI 26.7
[2021-10-09] MEDS ORDERED: predniSONE 20 MG TABLET (UD) PO ONE (22:26)
[2021-10-09] MEDS ORDERED: predniSONE 20 MG TABLET (UD) ONE (22:28)
== END 2021-10-09 22:41 | disposition home or self-care (01) ==
LOC: FER 22:18
DX: L23.9 Allergic contact dermatitis, unspecified cause (principal)
CPT/HCPCS: 99283-25

== ENCOUNTER 2023-02-26 23:51 | Inpatient (IN) | payer BC ==
[2023-02-27] MEDS ORDERED: SODIUM CHLORIDE 1,000 ML IV ONE (00:05)
[2023-02-27] MEDS ORDERED: ONDANSETRON 4 MG/2 ML VIAL IVPUSH ONE (00:05)
[2023-02-27] MEDS ORDERED: KETOROLAC TROMETHAMINE 30 MG/1 ML VIAL IVPUSH ONE (00:05)
[2023-02-27] MEDS ORDERED: PANTOPRAZOLE SODIUM 40 MG VIAL IVPUSH ONE (00:08)
[2023-02-27] MEDS ORDERED: KETOROLAC TROMETHAMINE 30 MG/1 ML VIAL ONE (00:18)
[2023-02-27] MEDS ORDERED: PANTOPRAZOLE SODIUM 40 MG VIAL ONE (00:18)
[2023-02-27] MEDS ORDERED: ONDANSETRON 4 MG/2 ML VIAL ONE (00:19)
[2023-02-27 01:16] LABS: HEMATOCRIT 48.7 % (35.4-49); MCH 27.5 pg (25.7-33.7); MCHC 32.9 g/dl (32.0-35.9); MEAN CELL VOLUME 83.7 fl (80-96); MEAN PLT VOLUME 9.7 fl (7.5-11.1); PLATELET COUNT 182 10^3/uL (134-434); RBC 5.82 M/mm3 (4.00-5.60); RDW 14.6 % (11.9-15.9); WHITE BLOOD COUNT 8.4 K/mm3 (4.0-10.0)
[2023-02-27 01:46] LABS: ALBUMIN 4.2 g/dl (3.4-5.0); BLOOD UREA NITROGEN 25.4 mg/dL (7-18)
[2023-02-27 01:49] LABS: CREATININE 0.9 mg/dL (0.55-1.3)
[2023-02-27 01:51] LABS: TOT PROT 7.8 g/dl (6.4-8.2)
[2023-02-27 01:52] LABS: BILIRUBIN,TOTAL 0.5 mg/dL (0.2-1)
[2023-02-27] MEDS ORDERED: ACETAMINOPHEN 1000 MG/100 ML BAG IVPB PRN (04:38)
[2023-02-27 05:49] LABS: INR 1.05 (0.83-1.09); PROTHROMBIN TIME (PATIENT) 12.2 SEC (9.7-13.0)
[2023-02-27 05:52] LABS: ACTIVATED PTT 28.1 SECONDS (25.2-36.5)
[2023-02-27] MEDS ORDERED: ONDANSETRON 4 MG/2 ML VIAL IVPUSH PRN (06:00)
[2023-02-27 06:02] VITALS: RESP 18; BMI 28.4
[2023-02-27] MEDS: DEXTROSE 5%-0.45% SALINE 1,000 ML IV SCH (06:07)
[2023-02-27 18:52] LABS: HEMOGLOBIN 14.3 G/dL (11.7-16.9); MCH 27.6 pg (25.7-33.7); MCHC 32.5 g/dl (32.0-35.9); MEAN CELL VOLUME 84.9 fl (80-96); MEAN PLT VOLUME 9.9 fl (7.5-11.1); PLATELET COUNT 130.6 10^3/uL (134-434); RBC 5.18 10^6/uL (4.00-5.60); RDW 15.4 % (11.9-15.9); WHITE BLOOD COUNT 4.3 10^3/uL (4.0-10.8)
[2023-02-27 19:05] LABS: BILIRUBIN,TOTAL 0.9 mg/dl (0.2-1); CALCIUM 8.8 mg/dl (8.5-10.1); CREATININE 0.9 mg/dl (0.6-1.3); POTASSIUM 4.6 mmol/L (3.5-5.1); TOT PROT 5.9 g/dl (6.4-8.2)
[2023-02-28] MEDS: DEXTROSE 5%-0.45% SALINE 1,000 ML IV SCH (05:45)
[2023-02-28 12:15] VITALS: BP 122/70; PULSE 74; TEMP 99.1
== END 2023-02-28 15:22 | disposition home or self-care (01) | DRG 390 ==
LOC: FER 23:51 → FM/S 02-27 03:58 → UNDOADMIN 02-27 05:24
PROVIDERS: ADMIT Family Medicine; ATTEND Family Medicine
DX: K56.609 Unspecified intestinal obstruction, unspecified as to partial versus complete obstruction (principal); R10.9 Unspecified abdominal pain
CPT/HCPCS: 0241U-QW; 36415; 71045-TC-FY; 74019-TC-FY; 74177-TC; 80053; 82550; 82553; 83690; 84484; 85025; 85027; 85610; 85730; 86850; 86900; 86901; 93005; 99285-25; Q9967